=== PATIENT | female | born 2000 | race Caucasian/White ===

== ENCOUNTER 2019-07-28 19:55 | Emergency (ER) | payer OTHER ==
[2019-07-28] MEDS: LIDOCAINE 1% (MDV) 20 ML INJ SC (21:09)
[2019-07-28] MEDS: HYDROCODONE/APAP (10/325) TAB PO (21:09)
[2019-07-28] MEDS: CEPHALEXIN 500 MG CAP PO (21:35)
[2019-07-28] MEDS: TRIMETHOPRIM/SULFAMETHOX (DS) TAB PO (21:35)
[2019-07-28] MEDS: BACITRACIN 0.5%/ZINC 28.35 GM OINT TOP (21:36)
== END 2019-07-28 21:50 | disposition home or self-care (01) ==
LOC: FTE 19:55
DX: L03.031 Cellulitis of right toe (principal); L03.032 Cellulitis of left toe; J45.909 Unspecified asthma, uncomplicated
CPT/HCPCS: 11740; 99283-25